=== PATIENT | male | born 1965 | race Caucasian/White ===

== ENCOUNTER 2017-01-26 22:04 | Emergency (ER) | payer BC ==
[2017-01-26 22:08] VITALS: TEMP 98; BMI 34.8
--- NOTE | 2017-01-26 22:25 | PDOC ---
History of Present Illness - General History Source: Patient, Family, Old Records Exam Limitations: No Limitations - History of Present Illness Initial Comments: 01/26/17 22:53 The patient is a 51 year old male with a significant past medical history of CAD (s/p [place] stents x2), NIDD, HTN, and DVT who presents to the emergency department today for further evaluation of back pain since yesterday. The patient that last night he went out to a bar with some friends and began to experience some back pain secondary to standing for a long period of time. The patient reports that this morning he twitched his back bringing in groceries from the car. He states that he was able to go up and down a flight of stairs once but he sat down and was unable to get up on his own. The patient describes the pain as excruciating, radiating from the lower back to his right testicle. The patient denies history of UTI or testicular cancer. The patient denies fever, chills, and sweats. The patient denies nausea, vomiting, and diarrhea. The patient denies chest pain, cough, and shortness of breath. PCP: Dr. Angelo Lazaro [phone] PAST MEDICAL HISTORY: As per HPI PAST SURGICAL HISTORY: 2 Heart stents FAMILY HISTORY: No pertinent history reported SOCIAL HISTORY: Social Drinker MEDICATIONS: Reviewed ALLERGIES: As per nursing notes <Chris Dawson - Last Filed: 01/27/17 02:16> <Claribel Patel - Last Filed: 01/28/17 14:10> - General Chief Complaint: Back Pain Stated Complaint: BACK PAIN Time Seen by Provider: 01/26/17 22:25 Past History <Chris Dawson - Last Filed: 01/27/17 02:16> - Past Medical History Cardiac Disorders: Yes Diabetes: Yes GI Disorders: Yes (DIVERTICULOSIS) HTN: Yes Hypercholesterolemia: Yes - Surgical History Cardiac Surgery: Yes (2 STENTS) - Psycho/Social/Smoking Cessation Hx Anxiety: No Suicidal Ideation: No Smoking History: Never smoked Have you smoked in the past 12 months: Yes Number of Cigarettes Smoked Daily: 0 'Breaking Loose' booklet given: 09/08/15 Substance Use Type: Marijuana <Claribel Patel - Last Filed: 01/28/17 14:10> - Past Medical History Allergies/Adverse Reactions: Allergies Allergy/AdvReac Type Severity Reaction Status Date / Time No Known Allergies Allergy Verified 01/26/17 22:16 Home Medications: Ambulatory Orders Aspirin/Calcium Carbonate/Mag [Aspirin Buffered 325 mg Tab] 325 mg PO DAILY Empagliflozin [Jardiance] 10 mg PO DAILY 09/08/15 Exenatide Microspheres [Bydureon] 2 mg SQ Q7D 09/08/15 Rosuvastatin Calcium [Crestor] 10 mg PO DAILY 09/08/15 Exenatide Microspheres [Bydureon Pen] 2 mg SQ DAILY 01/26/17 Metformin HCl [Metformin HCl ER] 1,000 mg PO DAILY 01/26/17 Testosterone Enanthate 200 mg IM MONTHLY 01/26/17 Testosterone [Androderm] 1 each TD DAILY 01/26/17 Valsartan/Hydrochlorothiazide [Valsartan-Hctz 160-12.5 mg Tab] 1 each PO DAILY 01/26/17 Methocarbamol [Robaxin -] 500 mg PO TID #30 tablet 01/27/17 Oxycodone HCl/Acetaminophen [Percocet 5/325 -] 1 tab PO Q6H #10 tablet MDD 4 05/10 Review of Systems - Review of Systems Able to Perform ROS?: Yes Comments:: 01/26/17 22:54 GENERAL/CONSTITUTIONAL: No fever or chills. No weakness. HEAD, EYES, EARS, NOSE AND THROAT: No change in vision. No ear pain or discharge. No sore throat. CARDIOVASCULAR: No chest pain or shortness of breath. RESPIRATORY: No cough, wheezing, or hemoptysis. GASTROINTESTINAL: No nausea, vomiting, diarrhea or constipation. GENITOURINARY: (+) Right testicle pain. No dysuria, frequency, or change in urination. MUSCULOSKELETAL: (+) Back pain. No joint or muscle swelling or pain. No neck or SKIN: No rash NEUROLOGIC: No headache, vertigo, loss of consciousness, or change in strength/ sensation. ENDOCRINE: No increased thirst. No abnormal weight change. HEMATOLOGIC/LYMPHATIC: No anemia, easy bleeding, or history of blood clots. ALLERGIC/IMMUNOLOGIC: No hives or skin allergy. <Chris Dawson - Last Filed: 01/27/17 02:16> *Physical Exam - Vital Signs Last Vital Signs Temp Pulse Resp BP Pulse Ox 98 F 92 H 18 152/83 96 01/26/17 22:06 01/26/17 22:06 01/26/17 22:06 01/26/17 22:06 01/26/17 22:06 - Physical Exam Comments: 01/26/17 23:11 GENERAL: Awake, alert, and fully oriented, in no acute distress HEAD: No signs of trauma EYES: PERRLA, EOMI, sclera anicteric, conjunctiva clear ENT: Auricles normal inspection, hearing grossly normal, nares patent, oropharynx clear without exudates. Moist mucosa NECK: Normal ROM, supple, no lymphadenopathy, JVD, or masses LUNGS: Breath sounds equal, clear to auscultation bilaterally. No wheezes, and no crackles HEART: Regular rate and rhythm, normal S1 and S2, no murmurs, rubs or gallops ABDOMEN: Soft, nontender, normoactive bowel sounds. No guarding, no rebound. No masses TESTICLE: (+) Deficit in right external ring of the inguinal canal EXTREMITIES: Normal range of motion, no edema. No clubbing or cyanosis. No cords, erythema, or tenderness NEUROLOGICAL: Cranial nerves II through XII grossly intact. Normal speech, normal gait SKIN: Warm, Dry, normal turgor, no rashes or lesions noted. <Chris Dawson - Last Filed: 01/27/17 02:16> - Vital Signs Last Vital Signs Temp Pulse Resp BP Pulse Ox 98 F 92 H 18 152/83 96 01/26/17 22:06 01/26/17 22:06 01/26/17 22:06 01/26/17 22:06 01/26/17 22:06 <Claribel Patel - Last Filed: 01/28/17 14:10> ED Treatment Course - LABORATORY CBC & Chemistry Diagram: 01/26/17 22:45 01/26/17 22:45 - RADIOLOGY Radiology Studies Ordered: 01/27/17 02:[address] Abdomen/Pelvis Impression: There is no free air. There are no obvious gallstones. There is no hydronephrosis. There are no renal or ureteral calculi seen. 1.7 cm left adrenal nodule noted. There is a moderate amount of stool noted in the colon. There is no evidence of intestinal obstruction. There is sigmoid diverticulosis without obvious diverticulitis. The appendix is normal in size. There is no evidence of appendicitis. There is an small fat containing ventral abdominal wall hernia. There are no incarcerated bowel loops. Urinary bladder is unremarkable. There are no bladder calculi. Read and reported by radiologist Dr. Pravin Cano MD. <Chris Dawson - Last Filed: 01/27/17 02:16> - LABORATORY CBC & Chemistry Diagram: 01/26/17 22:45 01/26/17 22:45 <Claribel Patel - Last Filed: 01/28/17 14:10> Medical Decision Making - Medical Decision Making 01/27/17 02:04 Patient Name: Jonathon Blevins THIS IS A PRELIMINARY REPORT FROM [facility] EXAM: CT abdomen/pelvis with oral contrast IMAGES: [id number] DATE OF SERVICE: 2017-01-27 01:12:48.0 REASON FOR EXAM: Rule out kidney stone COMPARISON: None FINDINGS: There is no free air. There are no obvious gallstones. There is no hydronephrosis. There are no renal or ureteral calculi seen. 1.7 cm left adrenal nodule noted. There is a moderate amount of stool noted in the colon. There is no evidence of intestinal obstruction. There is sigmoid diverticulosis without obvious diverticulitis. The appendix is normal in size. There is no evidence of appendicitis. There is an small fat containing ventral abdominal wall hernia. There are no incarcerated bowel loops. Urinary bladder is unremarkable. There are no bladder calculi. THIS DOCUMENT HAS BEEN ELECTRONICALLY SIGNED 01/27/17 02:32 Pt is asking for dilaudid. I will give him percocet for the pain and send him for an L spine CT scan 01/27/17 04:43 Patient Name: Jonathon Lindoholli THIS IS A PRELIMINARYREPORT FROM [facility] EXAM: CT lumbar spine without contrast IMAGES: [id number] INDICATION: Back pain radiating to right inguinal region. DATE OF SERVICE: 2017-01-27 03:19: 09.0 COMPARISON: none FINDINGS: There is no fracture. There is mild degenerative retrolisthesis of L5 on S1. The L3-4 disc demonstrates a small bulge and mild bilateral facet joint arthrosis which mildly narrows the central canal and both neural foramina. The L4-5 disc is minimally unroofed by the listhesis with minimal bulging and there is also mild bilateral facet joint arthrosis which results in mild left neural foraminal narrowing. L5/S1 disc demonstrates mild bulging with severe left-sided and mild to moderate right- sided facet joint arthrosis which results in moderate left-sided neural foraminal narrowing. IMPRESSION: Mild central canal and bilateral neural foraminal narrowing at L3/4 due a to disc bulge and facet joint arthrosis. Mild left neural frontal narrowing at L4/5 due to disc bulge, geometric distortion from a retrolisthesis and mild facet joint arthrosis. Moderate left L5/S1 neural foraminal narrowing due to facet joint arthrosis and minimal disc bulging. THIS DOCUMENT HAS BEEN ELECTRONICALLY SIGNED 01/28/17 14:09 Pt is stable for discharge. He will be asked to follow with his PMD. He has L spine pathology, but not in the L1,L2 area, where his current pain would be, as he has back and side pain radiating to his groin. No pain radiating down the backs of his legs. <Claribel Patel - Last Filed: 01/28/17 14:10> *DC/Admit/Observation/Transfer - Attestations Scribe Attestion: 01/26/17 22:54 Documentation prepared by Chris Dawson, acting as regional medical director for Claribel Patel MD/DO. <Chris Dawson - Last Filed: 01/27/17 02:16> - Discharge Dispostion Admit: No <Claribel Patel - Last Filed: 01/28/17 14:10> Diagnosis at time of Disposition: Musculoskeletal pain - Discharge Dispostion Disposition: HOME Condition at time of disposition: Stable - Prescriptions Prescriptions: Oxycodone HCl/Acetaminophen [Percocet 5/325 -] 1 tab PO Q6H #10 tablet MDD 4 Methocarbamol [Robaxin -] 500 mg PO TID #30 tablet - Referrals Referrals: Angelo Lazaro MD [Primary Care Provider] - - Patient Instructions Printed Discharge Instructions: DI for Musculoskeletal Pain
[2017-01-26] MEDS ORDERED: KETOROLAC TROMETHAMINE 30 MG/1 ML VIAL IVPUSH ONE (22:34)
[2017-01-26] MEDS ORDERED: morphine CARPU-JECT 2 MG/1 ML DISP.SYRIN IVPUSH ONE (22:34)
[2017-01-26] MEDS ORDERED: KETOROLAC TROMETHAMINE 30 MG/1 ML VIAL ONE (22:59)
[2017-01-26] MEDS ORDERED: morphine CARPU-JECT 2 MG/1 ML DISP.SYRIN ONE (22:59)
[2017-01-26] MEDS ORDERED: ONDANSETRON 4 MG/2 ML VIAL ONE ×2 (22:59→23:00)
[2017-01-26] MEDS ORDERED: ONDANSETRON 4 MG/2 ML VIAL IVPB ONE (22:59)
[2017-01-26 23:01] LABS: EOSINOPHIL 2.4 % (0-4.5); MCH 30.8 pg (25.7-33.7); MCHC 34.5 g/dl (32.0-35.9); MEAN PLT VOLUME 8.9 fl (7.5-11.1); PLATELET COUNT 165 K/MM3 (134-434); RDW 13.6 % (11.9-15.9); WHITE BLOOD COUNT 6.9 K/mm3 (4.0-10.0)
[2017-01-26 23:20] LABS: ALBUMIN 3.7 g/dl (3.4-5.0); ALK PHOS 92 U/L (45-117); ANION GAP 9 (8-16); BILIRUBIN,TOTAL 0.3 mg/dL (0.2-1.0); CALCIUM 8.8 mg/dL (8.5-10.1); CO2 27 mmol/L (21-32); GLUCOSE,RANDOM 205 mg/dL (74-106); SGOT/AST 19 U/L (15-37); SGPT/ALT 32 U/L (12-78); TOT PROT 6.7 g/dl (6.4-8.2)
[2017-01-27] MEDS ORDERED: ACETAMINOPHEN 1000 MG/100 ML VIAL (NON FORMULARY) IVPB ONE (00:28)
[2017-01-27] MEDS ORDERED: ACETAMINOPHEN INJECTION 100 ML IVPB ONE (01:02)
[2017-01-27] MEDS ORDERED: OXYCODONE/APAP 5/325MG COMBO TABLET PO ONE (02:32)
[2017-01-27] MEDS ORDERED: OXYCODONE/APAP 5/325MG COMBO TABLET ONE (02:40)
[2017-01-27] MEDS ORDERED: POLYETHYLENE GLYCOL 3350 119 GM BTL PO ONE (03:29)
[2017-01-27 04:49] VITALS: BP 147/81; PULSE 78
== END 2017-01-27 04:44 | disposition home or self-care (01) ==
LOC: JER 22:04
PROC: 3E033NZ Introduction of Analgesics, Hypnotics, Sedatives into Peripheral Vein, Percutaneous Approach (ICD-10-PCS; principal; 2017-01-26)
PROC: 3E033GC Introduction of Other Therapeutic Substance into Peripheral Vein, Percutaneous Approach (ICD-10-PCS; 2017-01-26)
PROC: 3E0333Z Introduction of Anti-inflammatory into Peripheral Vein, Percutaneous Approach (ICD-10-PCS; 2017-01-26)
DX: M54.5 Low back pain (principal); I25.2 Old myocardial infarction; I10 Essential (primary) hypertension; Z95.5 Presence of coronary angioplasty implant and graft; E11.9 Type 2 diabetes mellitus without complications; Z79.84 Long term (current) use of oral hypoglycemic drugs; K57.20 Diverticulitis of large intestine with perforation and abscess without bleeding
CPT/HCPCS: 36415; 72131-TC; 74176-TC; 80053; 85025; 99282-25

== ENCOUNTER 2021-03-31 14:58 | Emergency (ER) | payer BC ==
[2021-03-31 15:14] VITALS: TEMP 98.6; BMI 34.4
[2021-03-31 17:01] LABS: BASO % 0.6 % (0-2.0); EOS % 2.2 % (0-4.5); HEMATOCRIT 42.7 % (35.4-49); HEMOGLOBIN 14.5 GM/dL (11.7-16.9); LYMPH % 28.2 % (8-40); MCH 29.9 pg (25.7-33.7); MCHC 34.1 g/dl (32.0-35.9); MEAN CELL VOLUME 87.9 fl (80-96); MEAN PLT VOLUME 8.9 fl (7.5-11.1); PLATELET COUNT 253 K/MM3 (134-434); RBC 4.86 M/mm3 (4.00-5.60); RDW 13.4 % (11.9-15.9); WHITE BLOOD COUNT 6.7 K/mm3 (4.0-10.0)
[2021-03-31 17:04] LABS: EPI CELLS 3 /uL (0-25.1); HYALINE CASTS 0 /uL (0-3.1); URINE APPEARANCE CLOUDY; URINE BACTERIA 23 /uL (0-1359); URINE BILIRUBIN NEGATIVE (NEGATIVE); URINE COLOR ORANGE; URINE GLUCOSE (UA) NEGATIVE (NEGATIVE); URINE KETONE NEGATIVE (NEGATIVE); URINE LEUK ESTERASE TRACE (NEGATIVE); URINE NITRITE NEGATIVE (NEGATIVE); URINE PROTEIN 2+ (NEGATIVE); URINE RBC 5868 /uL (0-23.9); URINE UROBILINOGEN 0.2 mg/dL (0.2-1.0); URINE WBC 30 /uL (0-25.8)
[2021-03-31 17:14] LABS: CALCIUM 9.8 mg/dL (8.5-10.1)
[2021-03-31 17:15] LABS: ALBUMIN 4.5 g/dl (3.4-5.0); BLOOD UREA NITROGEN 17.3 mg/dL (7-18)
[2021-03-31 17:20] LABS: BILIRUBIN,TOTAL 0.5 mg/dL (0.2-1); TOT PROT 7.5 g/dl (6.4-8.2)
[2021-03-31 21:09] VITALS: BP 144/82; PULSE 70
== END 2021-03-31 21:09 | disposition home or self-care (01) ==
LOC: JER 14:58
DX: R31.9 Hematuria, unspecified (principal)
CPT/HCPCS: 36415; 74176-TC; 80053; 81003; 85025; 87086; 99284-25

== ENCOUNTER 2021-11-06 17:51 | Emergency (ER) | payer BC ==
[2021-11-06 18:16] VITALS: BP 151/87; PULSE 75; TEMP 98.1; BMI 34.4
[2021-11-06] MEDS ORDERED: IBUPROFEN 600 MG TABLET (FP) PO ONE ×2 (18:25→18:45)
[2021-11-06] MEDS ORDERED: DIPHTH,PERTUSS(ACELL),TET 0.5 ML DISP.SYRIN IM ONE ×2 (18:25→18:45)
== END 2021-11-06 19:46 | disposition home or self-care (01) ==
LOC: FER 17:51
PROC: 0HQ0XZZ Repair Scalp Skin, External Approach (ICD-10-PCS; principal; 2021-11-06)
PROC: 3E0234Z Introduction of Serum, Toxoid and Vaccine into Muscle, Percutaneous Approach (ICD-10-PCS; 2021-11-06)
DX: S01.01XA Laceration without foreign body of scalp, initial encounter (principal); S16.1XXA Strain of muscle, fascia and tendon at neck level, initial encounter; S20.219A Contusion of unspecified front wall of thorax, initial encounter; W19.XXXA Unspecified fall, initial encounter
CPT/HCPCS: 70450-TC; 71250-TC; 72125-TC; 72128-TC; 90715; 99284-25

== ENCOUNTER 2022-03-01 04:26 | Day surgery (SDC) | payer BC ==
[2022-02-27 10:27] VITALS: BMI 32.7
[2022-03-01] MEDS ORDERED: KETOROLAC TROMETHAMINE 30 MG/1 ML VIAL ONE (07:13)
[2022-03-01] MEDS ORDERED: ePHEDrine SULFATE 50 MG/1 ML AMPULE ONE (07:13)
[2022-03-01] MEDS ORDERED: DEXAMETHASONE SOD PHOSPHATE 4 MG/1 ML VIAL ONE (07:13)
[2022-03-01] MEDS ORDERED: PHENYLEPHRINE HCL 10 MG/1 ML SINGLE DOSE VIAL ONE (07:13)
[2022-03-01] MEDS ORDERED: LIDOCAINE HCL 2% 100 MG/5 ML DISP.SYRIN ONE (07:13)
[2022-03-01] MEDS ORDERED: PROPOFOL 20 ML ONE (07:14)
[2022-03-01] MEDS ORDERED: ROCURONIUM BROMIDE 50 MG/5 ML SYRINGE ONE (07:15)
[2022-03-01] MEDS ORDERED: SUCCINYLCHOLINE CHLORIDE 200 MG/10 ML SYRINGE ONE (07:15)
[2022-03-01] MEDS ORDERED: MIDAZOLAM HCL 2 MG/2 ML SINGLE DOSE VIAL ONE (07:16)
[2022-03-01] MEDS ORDERED: BUPIVACAINE HCL/PF 0.5% (5MG/ML) 10 ML VIAL ONE (07:41)
[2022-03-01] MEDS ORDERED: ceFAZolin SODIUM 1 GM VIAL ONE (08:39)
[2022-03-01] MEDS ORDERED: ceFAZolin SODIUM 1 GM VIAL IVPB ONE (08:40)
[2022-03-01] MEDS ORDERED: LACTATED RINGERS SOLUTION 1,000 ML IV SCH (11:00)
[2022-03-01 14:04] VITALS: BP 130/63; PULSE 75; TEMP 97.4
== END 2022-03-01 13:55 | disposition home or self-care (01) ==
LOC: JASU-SURG 04:26
PROVIDERS: ATTEND Surgery
PROC: 8E0W4CZ Robotic Assisted Procedure of Trunk Region, Percutaneous Endoscopic Approach (ICD-10-PCS; 2022-03-01)
PROC: 0WUF4JZ Supplement Abdominal Wall with Synthetic Substitute, Percutaneous Endoscopic Approach (ICD-10-PCS; principal; 2022-03-01 08:00)
DX: K43.9 Ventral hernia without obstruction or gangrene (principal); K42.9 Umbilical hernia without obstruction or gangrene
CPT/HCPCS: 49652; S2900; 82962; 88302-TC; 94760